=== PATIENT | female | born 1945 | race Caucasian/White ===

== ENCOUNTER 2020-08-14 15:24 | Inpatient (IN) ==
[2020-08-14] MEDS ORDERED: dilTIAZem HCl 5 MG/ML 5 ML VIAL IV STA (15:47)
[2020-08-14] MEDS ORDERED: STAT IV Infusion **Titration per Protocol STA (15:47)
--- NOTE | 2020-08-14 15:48 | XRay Report ---
XR chest 1V portable CLINICAL HISTORY: Atypical chest pain COMPARISON STUDY: 03/09/2019 FINDINGS: The heart is the upper limits of normal in size. There is aortic tortuosity/ectasia. There is a small right pleural effusion with associated right basilar atelectasis/consolidation. Underlying emphysema is suspected.[ IMPRESSION: Small right pleural effusion with associated right basilar atelectasis/consolidation ACT 112: Negative or not required by law. Electronically signed by: Jim Rich M.D. 08/14/2020 3:47 PM
--- NOTE | 2020-08-14 15:51 | Emergency Department Note ---
Impression & Plan Atrial fibrillation with RVR, Dizzy ED Provider Note NAME: MARIA LUISA YEPEZ AGE: 74 SEX: F : 1945 ARRIVES VIA: Walk-In INFORMANT: Patient ED PROVIDER(S): Christian Sousa DO CHIEF COMPLAINT: Shortness of breath and palpitations HPI: Patient is a 74-year-old female who presents the ER for palpitations. She notes this has been present for the past 9 days. She has been getting shortness of breath over the past 2 days. She denies any chest pain. No belly pain, nausea, vomiting or diarrhea with exception of some loose bowel movements today and yesterday. Denies any dysuria, urgency or frequency. No other exacerbating remitting factors. Patient was initially seen and evaluated by Dr. Little PCP and then referred to cardiology. She had an echo done as an outpatient at [facility] and then was transferred to the ER for admission. ROS: See above HPI for pertinent positives & negatives. A total of 10 systems reviewed and were otherwise negative. PAST MEDICAL HISTORY:See Below PAST SURGICAL HISTORY:See Below FAMILY HISTORY:See Below SOCIAL HISTORY:See Below HOME MEDICATIONS:See Below ALLERGIES:See Below VITALS:See Below PHYSICAL EXAMINATION: GENERAL: Sitting up in bed, alert, well appearing, well nourished, no distress, non-toxic EYE EXAM: normal conjunctiva. OROPHARYNX: Mask in place NECK: supple, no nuchal rigidity, no adenopathy, non-tender LUNGS: Clear to auscultation. Normal chest wall mechanics HEART: Tachycardic and irregular regular, S1 normal and S2 normal ABDOMEN: abdomen soft, non-tender, normo-active bowel sounds, no masses, no rebound or guarding. UPPER EXTREMITIES: upper extremities are grossly normal. LOWER EXTREMITIES: No pitting edema. Calves are equal bilateral NEURO EXAM: Normal sensorium, cranial nerves II-XII grossly intact, normal speech, no gross weakness of arms, no gross weakness of legs. MEDICAL DECISION MAKING: Patient is a 74-year-old female who presents the ER referred in by cardiology from [facility]. She is found to be in A. fib with RVR. Heart rate was in the 130s. IV was established blood work was obtained. Labs show no significant leukocytosis or anemia. INR unremarkable. BMP with a slightly elevated chloride. LFTs bilirubin and troponin was negative. TSH unremarkable. Covid negative. Patient notes that she believes she has been in this for about 9 days. She denies any chest pain. She does admit to some shortness of breath with up moving around. Chest x-ray shows some vascular congestion and a small effusion. Patient was updated bedside. She was placed on Cardizem drip and bolus. Heart rate trended down to the 70s. Discussed with the hospitalist for further evaluation. Triage Nursing notes reviewed. Prior medical records reviewed Vital Signs: reviewed and remarkable for hypertensive and tachycardic Differential diagnosis: Differential diagnoses includes but is not limited to acute coronary syndrome, myocardial infarction, pericarditis, pulmonary embolus, aortic dissection, pneumonia, pneumothorax, musculoskeletal, shingles, esophageal. ER treatment provided: See below Diagnostics interpreted by me: ECG: A. fib RVR rate 138 Normal axis No PVCs Nonspecific ST wave changes in the inferior and lateral leads Cardiac Monitoring: An order was placed for continuous cardiac monitoring. The monitor shows a rate of 140 with A. fib RVR rhythm. Laboratory studies: As stated above and show below. Imaging studies: Portable AP upright 1 view of the chest shows small effusion Consultation(s): Discussed with hospitalist for further evaluation ED COURSE: Procedures: none Critical Care: I have personally spent 40 minutes of critical care time in the direct management of this patient. This includes bedside care, interpretation of diagn ostic studies, and testing, discussion with consultants, patient, and family members, and other required patient management activities. This 40 minutes is in excess of all separately billable procedures. Past Med/Surg History Medical History (Updated 08/14/20 @ 17:59 by Christian Sousa DO) Dislocation, ulnar styloid Distal radius fracture, right GERD (gastroesophageal reflux disease) Hx of fracture of arm Family History Other Diabetes Myocardial infarction Social History Smoking Status: Former smoker Tobacco Type: Cigarettes Preferred Language: Sri Lankan Feels Safe at Home: Yes Allergies Allergies Allergy/AdvReac Type Severity Reaction Status Date / Time codeine AdvReac NAUSEA & Verified 08/14/20 16:37 VOMITING Home Meds Home Medications Medication Instructions Recorded Confirmed apixaban [Eliquis] 5 mg PO BID 08/14/20 08/14/20 metoprolol succinate 25 mg PO DAILY 08/14/20 08/14/20 Results & Data (ED) Vital Signs Vital Signs - 24 hr 08/14/20 15:27 08/14/20 15:33 08/14/20 15:50 Temperature 36.5 C Temperature Source Oral Pulse Rate 136 H 132 H Pulse Rate from SpO2 Sensor Respiratory Rate 20 Respiratory Effort / Characteristics Non-Labored Spontaneous Non-Labored Spontaneous Respiratory Depth Normal Normal Respiratory Pattern Regular Regular Blood Pressure 175/94 H Blood Pressure Mean 121 Blood Pressure Position Sitting Pulse Oximetry 96 97 Oxygen Delivery Method Room Air Room Air Room Air Sepsis Recent Fever Within 48 Hours No Sepsis New/Unexplained Change in Mental Status N/A Sepsis Action Taken by Nursing No Action Required 08/14/20 16:00 08/14/20 16:09 08/14/20 16:31 Temperature Temperature Source Pulse Rate 97 H 112 H Pulse Rate from SpO2 Sensor 103 H 105 H Respiratory Rate 17 22 Respiratory Effort / Characteristics Respiratory Depth Respiratory Pattern Blood Pressure 139/87 142/99 H Blood Pressure Mean 108 124 Blood Pressure Position Pulse Oximetry 96 93 95 Oxygen Delivery Method Room Air Sepsis Recent Fever Within 48 Hours Sepsis New/Unexplained Change in Mental Status Sepsis Action Taken by Nursing 08/14/20 17:01 Temperature Temperature Source Pulse Rate 94 H Pulse Rate from SpO2 Sensor 93 H Respiratory Rate 19 Respiratory Effort / Characteristics Respiratory Depth Respiratory Pattern Blood Pressure 149/103 H Blood Pressure Mean 119 Blood Pressure Position Pulse Oximetry 96 Oxygen Delivery Method Sepsis Recent Fever Within 48 Hours Sepsis New/Unexplained Change in Mental Status Sepsis Action Taken by Nursing Laboratory Data Result diagrams: 08/14/20 15:40 08/14/20 15:40 Lab Results 08/14/20 08/14/20 08/14/20 Range/Units 15:40 15:40 15:40 WBC 8.10 (4.8-10.8) K/uL RBC 4.16 L (4.2-5.4) M/uL Hgb 13.4 (12.0-16.0) g/dL Hct 41.0 (37-47) % MCV 98.6 (80-100) fL MCH 32.2 (25-34) pg MCHC 32.7 (32-36) g/dL RDW Std Deviation 48.4 H (36.4-46.3) fL RDW Coeff of Yolie 13.4 (11.5-14.5) % Plt Count 271 (130-400) K/uL MPV 12.1 H (7.4-10.4) fL Immature Gran % (Auto) 0.2 % Neut % (Auto) 53.4 % Lymph % (Auto) 35.9 % [place] % (Auto) 9.1 % Eos % (Auto) 1.2 % Baso % (Auto) 0.2 % Neut # (Auto) 4.31 (1.4-6.5) K/uL Lymph # (Auto) 2.91 (1.2-3.4) K/uL [place] # (Auto) 0.74 H (0.11-0.59) K/uL Eos # (Auto) 0.10 (0-0.5) K/uL Baso # (Auto) 0.02 (0-0.2) K/uL Immature Gran # (Auto) 0.02 (0.00-0.02) K/uL PT 10.3 (9.0-12.0) Seconds INR 1.0 (0.9-1.1) APTT 26.5 (21.0-31.0) Seconds PTT Ratio 0.9 Sodium 138 (136-145) mmol/L Potassium 4.1 (3.5-5.1) mmol/L Chloride 109 H (98-107) mmol/L Carbon Dioxide 25 (21-32) mmol/L Anion Gap 4.0 (3-11) BUN 15 (7-18) mg/dl Creatinine 0.96 (0.6-1.2) mg/dl Est Cr Clr Drug Dosing 66.6 ml/min Est GFR ( Amer) 67.5 Est GFR (Non-Af Amer) 58.3 BUN/Creatinine Ratio 15.7 (10-20) Glucose 114 H (70-99) mg/dl Calcium 9.0 (8.5-10.1) mg/dl Total Bilirubin 0.4 (0.2-1) mg/dl AST 25 (15-37) U/L ALT 47 (12-78) U/L Alkaline Phosphatase 110 (45-117) U/L Troponin I < 0.015 (0-0.045) ng/ml Total Protein 7.5 (6.4-8.2) gm/dl Albumin 3.6 (3.4-5.0) gm/dl Globulin 3.9 (2.5-4.0) gm/dl Albumin/Globulin Ratio 0.9 (0.9-2) Lipase 119 (73-393) U/L TSH (0.300-4.500) uIu/ml SARS-CoV-2 Ag (Rapid) (Negative) 08/14/20 08/14/20 Range/Units 15:40 Unknown WBC (4.8-10.8) K/uL RBC (4.2-5.4) M/uL Hgb (12.0-16.0) g/dL Hct (37-47) % MCV (80-100) fL MCH (25-34) pg MCHC (32-36) g/dL RDW Std Deviation (36.4-46.3) fL RDW Coeff of Yolie (11.5-14.5) % Plt Count (130-400) K/uL MPV (7.4-10.4) fL Immature Gran % (Auto) % Neut % (Auto) % Lymph % (Auto) % [place] % (Auto) % Eos % (Auto) % Baso % (Auto) % Neut # (Auto) (1.4-6.5) K/uL Lymph # (Auto) (1.2-3.4) K/uL [place] # (Auto) (0.11-0.59) K/uL Eos # (Auto) (0-0.5) K/uL Baso # (Auto) (0-0.2) K/uL Immature Gran # (Auto) (0.00-0.02) K/uL PT (9.0-12.0) Seconds INR (0.9-1.1) APTT (21.0-31.0) Seconds PTT Ratio Sodium (136-145) mmol/L Potassium (3.5-5.1) mmol/L Chloride (98-107) mmol/L Carbon Dioxide (21-32) mmol/L Anion Gap (3-11) BUN (7-18) mg/dl Creatinine (0.6-1.2) mg/dl Est Cr Clr Drug Dosing ml/min Est GFR ( Amer) Est GFR (Non-Af Amer) BUN/Creatinine Ratio (10-20) Glucose (70-99) mg/dl Calcium (8.5-10.1) mg/dl Total Bilirubin (0.2-1) mg/dl AST (15-37) U/L ALT (12-78) U/L Alkaline Phosphatase (45-117) U/L Troponin I (0-0.045) ng/ml Total Protein (6.4-8.2) gm/dl Albumin (3.4-5.0) gm/dl Globulin (2.5-4.0) gm/dl Albumin/Globulin Ratio (0.9-2) Lipase (73-393) U/L TSH 1.600 (0.300-4.500) uIu/ml SARS-CoV-2 Ag (Rapid) Negative (Negative) Administered Medications Diltiazem HCl 125 mg/ Dextrose 125 mls @ 5 mls/hr IV .Q24H [facility]; Protocol Stop: 09/13/20 15:59 Last Admin: 08/14/20 15:59 Dose: 5 mg/hr, 5 mls/hr Documented by: [id number] Cosigned by: [id number] Discontinued Medications Diltiazem HCl (Diltiazem Hcl 5 Mg/Ml 5 Ml Vial) 10 mg IV NOW STA Stop: 08/14/20 15:48 Last Admin: 08/14/20 15:55 Dose: 10 mg Documented by: [id number] Cosigned by: [id number] Miscellaneous (Stat Iv Infusion Titration Per Protocol) 1 ea N/A NOW STA Stop: 08/14/20 15:48 Last Admin: 08/14/20 15:59 Dose: Not Given Documented by: [id number] Discharge Plan Visit Data Chief Complaint: Arrhythmia/Palpitations Stated Complaint: SOB,PALPITATIONS, REFERRED BY [facility] ED Provider: Christian Sousa Discharge Problem: Atrial fibrillation with RVR, Dizzy Forms Stand Alone Forms: My [employer] Prescriptions Prescriptions: No Action metoprolol succinate 25 mg Tablet Extended Release 24 Hr 25 mg PO DAILY RF: 0 Eliquis 5 mg Tablet 5 mg PO BID RF: 0
[2020-08-14 15:52] LABS: Basophils # (auto) 0.02 K/uL (0-0.2); Basophils % (auto) 0.2 %; Eosinophils % (auto) 1.2 %; Hemoglobin 13.4 g/dL (12.0-16.0); Immature Granulocytes # (auto) 0.02 K/uL (0.00-0.02); Immature Granulocytes % (auto) 0.2 %; Lymphocytes # (auto) 2.91 K/uL (1.2-3.4); Lymphocytes % (auto) 35.9 %; Mean Corpuscular Hemoglobin 32.2 pg (25-34); Mean Corpuscular Hgb Conc 32.7 g/dL (32-36); Mean Corpuscular Volume 98.6 fL (80-100); Mean Platelet Volume 12.1 fL (7.4-10.4); Monocytes # (auto) 0.74 K/uL (0.11-0.59); Monocytes % (auto) 9.1 %; Neutrophils # (auto) 4.31 K/uL (1.4-6.5); Neutrophils % (auto) 53.4 %; Platelet Count 271 K/uL (130-400); RDW Coefficient of Variation 13.4 % (11.5-14.5); RDW Standard Deviation 48.4 fL (36.4-46.3); Red Blood Count 4.16 M/uL (4.2-5.4)
[2020-08-14] MEDS ORDERED: dilTIAZem HCL 125 MG in DEXTROSE 5% 100 ML IV SCH (16:00)
[2020-08-14 16:04] LABS: Partial Thromboplastin Ratio 0.9; Partial Thromboplastin Time 26.5 Seconds (21.0-31.0); Prothrombin Time 10.3 Seconds (9.0-12.0)
[2020-08-14 16:09] LABS: Albumin Level 3.6 gm/dl (3.4-5.0); BUN Creatinine Ratio 15.7 (10-20); Blood Urea Nitrogen 15 mg/dl (7-18); Carbon Dioxide 25 mmol/L (21-32); Chloride 109 mmol/L (98-107); Creatinine Clr Calc Pharmacy 66.6 ml/min; Est GFR (African American) 67.5; Est GFR (Non-African American) 58.3; Glucose 114 mg/dl (70-99); Lipase 119 U/L (73-393); Potassium 4.1 mmol/L (3.5-5.1); Sodium 138 mmol/L (136-145)
[2020-08-14 16:22] LABS: Alanine Aminotransferase 47 U/L (12-78); Albumin Globulin Ratio 0.9 (0.9-2); Alkaline Phosphatase 110 U/L (45-117); Aspartate Aminotransferase 25 U/L (15-37); Bilirubin,Total 0.4 mg/dl (0.2-1); Globulin 3.9 gm/dl (2.5-4.0); Total Protein 7.5 gm/dl (6.4-8.2); Troponin I < 0.015 ng/ml (0-0.045)
[2020-08-14] MEDS ORDERED: Heparin IV Adult Wt-Based Standard *NO* Bolus Protocol IV SCH (17:11)
--- NOTE | 2020-08-14 17:17 | History & Physical Report ---
Date of Service August 14, 2020 Assessment & Plan (1) Atrial fibrillation with RVR: Shortness of breath Pt is 74 y/o F with PMH basal cell skin carcinoma presented to ER with complaint of shortness of breath x10 days, intermittent "fluttering" of heart and fatigue x3 months. In ER patient afebrile, P: 136, RR: 20, BP 175/94, 96% on room air. No leukocytosis, H/H: 13/41, negative troponin, normal TSH, UA negative. CXR: Small right pleural effusion with associated right basilar atelect asis/consolidation D-dimer: 1070 New onset atrial fibrillation. SOB may be secondary to A. fib, RVR, will rule out PE CTA chest pending to rule out PE Pending urine tox Negative rapid Covid testing In ER diltiazem drip started with heart rate low 100s, BP 139/87. Patient reports reduced shortness of breath since improved heart rate control Continue diltiazem drip Start heparin IV Cardiology consult A.m. labs DVT Prophylaxis -On IV heparin for A. fib DNR/DNI as per discussion with pt Follows with Dr Cervantes for routine care Pt was seen and care coordinated with Dr Whyte. See addendum History of Present Illness Chief Complaint: SOB Primary Care Provider: Rayshawn Cervantes DO Pt is 74 y/o F with PMH basal cell skin carcinoma presented to ER with complaint of shortness of breath x10 days. Shortness of breath worse with exertion. Also noticed intermittent "fluttering" of heart the past week. Patient reports chills for the past week without any fever. Reports fatigue x3 months. She reports negative outpatient rapid Covid testing 2 days ago. Has chronic nasal congestion. Reports 2-3 soft stools a day for the past week. Denies any loss of taste or smell. Denies cough. Denies chest pain. Admits to increased caffeine intake over the past several weeks, consuming 2 to 3 cups of coffee and 20 ounce bottle of Mountain Dew daily. Drinks 2 glasses of wine a day. Denies OTC or prescription medications. Saw PCP today and was referred to cardiology and referred to ER for further evaluation and treatment. PCP prescribed Eliquis and metoprolol succinate today however pt did not start taking yet. Outpatient echo report unavailable however echo report per cardiology note "preserved left and right ventricular systolic function, dilation of left atrium". Denies diaphoresis, N/V, MIGUEL, dizziness, syncope, vision changes, neck pain, sore throat, choking, otalgia, abdominal pain, extremity weakness, extremity edema, rashes, urinary symptoms. Allergies Allergy/AdvReac Type Severity Reaction Status Date / Time codeine AdvReac NAUSEA & Verified 08/14/20 16:37 VOMITING Home Medications Medication Instructions Recorded Confirmed Type apixaban [Eliquis] 5 mg PO BID 08/14/20 08/14/20 History metoprolol succinate 25 mg PO DAILY 08/14/20 08/14/20 History Past Med/Surg History Medical History (Updated 08/14/20 @ 20:08 by Jennifer Peterson PA-C) Basal cell carcinoma Dislocation, ulnar styloid Distal radius fracture, right GERD (gastroesophageal reflux disease) Hx of fracture of arm Surgical History (Updated 08/14/20 @ 20:09 by Jennifer Peterson PA-C) History of colonoscopy Family History Other Diabetes Myocardial infarction Social History (Updated 08/14/20 @ 20:09 by Jennifer Peterson PA-C) Smoking Status: Former smoker Tobacco Type: Cigarettes Smoking End Date: 35 years ago; Hx Alcohol Use: Yes (2 glasses of wine daily) Alcohol type: wine Hx Substance Use: No Preferred Language: Korean Communication Ability: Effective Beliefs That Will Affect Care: None Current Living Situation: Spouse Other Information That Helps Us Care for You: No Feels Safe at Home: Yes Safety Concerns: Feels Safe At This Time Assistive Devices: Glasses Review of Systems Review of Systems: All systems reviewed & are unremarkable except as noted in HPI & below Physical Exam Physical Exam: General: no distress, WDWN Head: normocephalic, atraumatic Eyes: PERRL, EOM's intact, conjunctiva non-injected, anicteric ENT: normal inspection external ears, nose, mucous membranes moist Neck: supple, trachea midlin Lungs: clear, no respiratory distress, no wheezing/rhonchi/rales CV: irregularly irregular, no murmur, no pretibial edema Abd: normal BS, soft, non-tender Ext: no cyanosis, no erythema, no calf tenderness Neuro: A&O x 3, no focal deficits noted, normal affect Skin: warm, dry Results & Data Results & Data ([facility]) Vital Signs (Past 12 Hours) Vital Signs Temp Pulse Resp BP Pulse Ox 08/14/20 16:09 93 08/14/20 15:50 132 H 97 08/14/20 15:27 36.5 C 136 H 20 175/94 H 96 Laboratory Results Short CBC 08/14/20 Range/Units 15:40 WBC 8.10 (4.8-10.8) K/uL Hgb 13.4 (12.0-16.0) g/dL Hct 41.0 (37-47) % Plt Count 271 (130-400) K/uL BMP 08/14/20 15:40 Sodium 138 Potassium 4.1 Chloride 109 H Carbon Dioxide 25 BUN 15 Creatinine 0.96 Glucose 114 H Calcium 9.0 Cardiac Enzymes 08/14/20 Range/Units 15:40 Troponin I < 0.015 (0-0.045) ng/ml Liver Function 08/14/20 Range/Units 15:40 Total Bilirubin 0.4 (0.2-1) mg/dl AST 25 (15-37) U/L ALT 47 (12-78) U/L Alkaline Phosphatase 110 (45-117) U/L Albumin 3.6 (3.4-5.0) gm/dl Urine 08/14/20 Range/Units 18:14 Urine Color Yellow Urine Appearance Clear (Clear) Urine pH 6.5 (4.5-7.5) Ur Specific [place] 1.011 (1.000-1.030) Urine Protein Negative (Negative) Urine Glucose (UA) Negative (Negative) Diagnostic Findings CXR: IMPRESSION: Small right pleural effusion with associated right basilar atelectasis/consolidation ECG Rate (beats per minute): 138 Rhythm: atrial fibrillation Supervising Physician Co-Signing Physician Notes I have seen and examined the patient and have discussed the case with the provider above. I agree with the assessment and plan as stated. 74 yo F with new onset atrial fibrillation. Rate is more controlled on diltiazem drip and on my exam she was 85bpm on average. She reports SOB and fatigue x 3 days. She illustrates how she can typically run up and down stairs at work without issue and recently she could only go up half way and then had to stop 2/2 SOB. She reports chills and abnormal BMs that are "sticky" 3 times daily for one week. She denies chest pain. Exam reveals that listed above and is mostly unremarkable. Agree with current plan of dilt and heparin drips with consultation to cardiology in am. Pato, DO
[2020-08-14 18:00] LABS: D Dimer 1070 ug/L FEU (0-500)
[2020-08-14 18:23] LABS: Appearance Urine Clear (Clear); Bilirubin Urine Negative (Negative); Blood Urine Negative (Negative); Color Urine Yellow; Glucose Urine UA Negative (Negative); Ketones Urine Negative (Negative); Leukocyte Esterase Urine Negative (Negative); Nitrite Urine Negative (Negative); Protein Urine Negative (Negative); Specific Gravity Urine 1.011 (1.000-1.030); Urobilinogen Urine Negative (Negative); pH Urine 6.5 (4.5-7.5)
[2020-08-14] MEDS ORDERED: ACETAMINOPHEN 325 MG TAB PO PRN (19:34)
[2020-08-14] MEDS: HEPARIN SODIUM/DEXTROSE 25,000 UNITS/500 ML BAG IV SCH (20:31)
[2020-08-14] MEDS ORDERED: OPTIRAY 320 125ml IV ONE (20:50)
[2020-08-14 21:55] LABS: Amphetamines+Metham, Urine Neg (Neg); Barbiturates, Urine Neg (Neg); Benzodiazepine, Urine Neg (Neg); Cocaine, Urine Neg (Neg); MDMA (Ecstacy), Urine Neg (Neg); Methadone, Urine Neg (Neg); Opiate, Urine Neg (Neg); Phencyclidine, Urine Neg (Neg)
[2020-08-15 02:16] LABS: Hematocrit (blood only) 36.4 % (37-47); Hemoglobin 11.8 g/dL (12.0-16.0); Mean Corpuscular Hemoglobin 31.9 pg (25-34); Mean Corpuscular Hgb Conc 32.4 g/dL (32-36); Mean Corpuscular Volume 98.4 fL (80-100); Mean Platelet Volume 11.6 fL (7.4-10.4); Platelet Count 219 K/uL (130-400); RDW Coefficient of Variation 13.5 % (11.5-14.5); RDW Standard Deviation 48.6 fL (36.4-46.3); White Blood Count 6.53 K/uL (4.8-10.8)
[2020-08-15 02:33] LABS: BUN Creatinine Ratio 14.7 (10-20); Calcium 8.1 mg/dl (8.5-10.1); Creatinine Clr Calc Pharmacy 83.1 ml/min; Est GFR (African American) 89.6; Est GFR (Non-African American) 77.3; Potassium 3.8 mmol/L (3.5-5.1)
[2020-08-15 02:36] LABS: Partial Thromboplastin Ratio 2.4
[2020-08-15 02:39] LABS: Partial Thromboplastin Time 66.3 Seconds (21.0-31.0)
--- NOTE | 2020-08-15 08:08 | CT Scan Report ---
CT ANGIOGRAPHY OF THE CHEST, PULMONARY EMBOLUS PROTOCOL CLINICAL HISTORY: Shortness of breath. Evaluate for pulmonary embolus. COMPARISON STUDY: Chest radiograph March 09, 2019 and August 14, 2020. TECHNIQUE: Following IV administration of 116 mL of Optiray-320, helical axial images of the chest we re obtained utilizing the pulmonary embolus protocol. Maximal intensity projections and sagittal and coronal reformats were viewed on an independent 3D workstation. IV contrast was administered withou t complication. Automated exposure control was utilized for the study. A dose lowering technique wa s utilized adhering to the principles of ALARA. CT DOSE: 374.23 mGy.cm FINDINGS: No pulmonary emboli are identified although the segmental and subsegmental pulmonary arter ies within the bilateral lower lobes are suboptimally assessed on this examination. Note is made of m oderate cardiomegaly. Ascending aorta is ectatic, measuring 3.9 cm in caliber. There is no pneumothor ax. Small to moderate right pleural effusion is noted. Interlobular septal thickening is noted. There are mild groundglass opacities. Subpleural right lower lobe opacity favors atelectasis. No thoracic lymphadenopathy is present. No suspicious lesions within the bony thorax are noted. Visual portions o f the upper abdomen are unremarkable. IMPRESSION: 1. No pulmonary emboli identified although segmental and subsegmental pulmonary arteries within the l ower lobes suboptimally assessed on this exam. 2. Small to moderate right pleural effusion with associated right lower lobe airspace opacity which f avors atelectasis. 3. Mild pulmonary edema. 4. Moderate cardiomegaly. ACT 112: Negative or not required by law. Electronically signed by: Román Newsome M.D. 08/15/2020 8:07 AM
--- NOTE | 2020-08-15 10:49 | Cardiology Consultation ---
Date of Consultation August 15, 2020 Assessment & Plan (1) Atrial fibrillation with RVR: Patient is a 74-year-old female presented with subacute onset symptoms of dyspnea and fatigue of several weeks in duration and was found to have newly observed atrial fibrillation with elevated ventricular response rate. Evaluation has demonstrated preserved LV systolic function and no significant valvular disease. Pulmonary pressures mildly elevated but CTA of the chest without evidence of pulmonary emboli. Patient rate controlled now with IV diltiazem and anticoagulated with IV heparin. History is notable for mild edema and fluid retention over the past several week Recommendations: Initiate oral anticoagulation with apixaban 5 mg twice per day while discontinuing heparin Initiate rate control with oral beta-yvette, begin metoprolol succinate 25 mg twice per day first dose now discontinuing IV diltiazem Single dose p.o. furosemide 20 mg with potassium supplement Depending on rate response to above changes may be discharged for outpatient management History of Present Illness Reason for Consultation: Newly observed atrial fibrillation with elevated ventricular response rate Requesting Physician: Dr. Casarez, Dr. Whyte Attending Physician: Hannah Casarez MD History of Present Illness Patient is a 74-year-old female without prior history of cardiac disease who presented with symptoms of fatigue and shortness of breath of several weeks or greater in duration. She had been experiencing symptoms of increasing lower extremity edema as well and result was tested for Covid which returned negative. Due to persistent symptoms patient was seen by primary care physician where she was observed to be in atrial fibrillation with poorly controlled ventricular response rate. Patient unaware of prior atrial arrhythmias. Notes no history of angina or congestive heart failure. Notes no history of valvular heart disease rheumatic fever scarlet fever. Denies syncope or near syncope. Notes no fevers chills unexplained infections. Appetite and weight have been generally stable but weight gradually trending upward recently. Patient was referred for inpatient management due to elevated heart rates and dyspnea. Pulmonary embolus is since been excluded Echocardiogram demonstrates preserved LV systolic function with mild elevation right heart pressures no significant valvular disease Heart rates have come under control with IV diltiazem. Patient anticoagulated with IV heparin Allergies Allergy/AdvReac Type Severity Reaction Status Date / Time codeine AdvReac NAUSEA & Verified 08/14/20 16:37 VOMITING Home Medications Medication Instructions Recorded Confirmed Type apixaban [Eliquis] 5 mg PO BID 08/14/20 08/14/20 History metoprolol succinate 25 mg PO DAILY 08/14/20 08/14/20 History Patient History Medical History Basal cell carcinoma Dislocation, ulnar styloid Distal radius fracture, right GERD (gastroesophageal reflux disease) Hx of fracture of arm Surgical History History of colonoscopy Family History Other Diabetes Myocardial infarction Social History Smoking Status: Former smoker Tobacco Type: Cigarettes Smoking End Date: 35 years ago; Hx Alcohol Use: Yes (2 glasses of wine daily) Alcohol type: wine Hx Substance Use: No Preferred Language: Cymro Communication Ability: Effective Beliefs That Will Affect Care: None Current Living Situation: Spouse Other Information That Helps Us Care for You: No Feels Safe at Home: Yes Safety Concerns: Feels Safe At This Time Assistive Devices: None Review of Systems Review of Systems: All systems reviewed & are unremarkable except as noted in HPI & below Physical Exam Constitutional: WD/WN, vitals as above Eyes: PERRL, conjunctivae normal, anicteric sclerae ENMT: external ear and nose normal, oropharynx normal Neck: trachea midline, no thyromegaly Respiratory: normal respiratory effort, lungs clear to auscultation Cardiovascular: Rate/Rhythm: + irregularly irregular Heart Sounds: normal S1 and normal S2; no gallop and no murmur Palpation: normal PMI Vessels: normal carotid upstroke and radial pulses present; no JVD and no carotid bruit Extremities: + edema (1-2 +) Gastrointestinal (Abdomen): normal bowel sounds, soft, nontender, no hepatosplenomegaly Musculoskeletal: no cyanosis or clubbing, extremities motor strength 5/5 Skin: no rashes, warm and dry Neurologic: PERRL, EOMI, accommodation nl, no face palsy, no dysarthria Psychiatric: A+Ox3, euthymic affect Results & Data ([facility]) Vital Signs (Past 12 Hours) Vital Signs Temp Pulse Pulse Resp BP Pulse Ox 08/15/20 08:01 36.9 C 75 18 115/56 L 98 08/15/20 03:58 36.5 C 83 18 124/87 92 08/15/20 00:08 36.7 C 85 18 119/78 91 08/15/20 00:00 90 Laboratory Results Laboratory Results - last 24 hr 08/14/20 08/14/20 08/14/20 15:40 15:40 15:40 WBC 8.10 RBC 4.16 L Hgb 13.4 Hct 41.0 MCV 98.6 MCH 32.2 MCHC 32.7 RDW Std Deviation 48.4 H RDW Coeff of Yolie 13.4 Plt Count 271 MPV 12.1 H Immature Gran % (Auto) 0.2 Neut % (Auto) 53.4 Lymph % (Auto) 35.9 [place] % (Auto) 9.1 Eos % (Auto) 1.2 Baso % (Auto) 0.2 Neut # (Auto) 4.31 Lymph # (Auto) 2.91 [place] # (Auto) 0.74 H Eos # (Auto) 0.10 Baso # (Auto) 0.02 Immature Gran # (Auto) 0.02 PT 10.3 INR 1.0 APTT 26.5 PTT Ratio 0.9 D-Dimer Sodium 138 Potassium 4.1 Chloride 109 H Carbon Dioxide 25 Anion Gap 4.0 BUN 15 Creatinine 0.96 Est Cr Clr Drug Dosing 66.6 Est GFR ( Amer) 67.5 Est GFR (Non-Af Amer) 58.3 BUN/Creatinine Ratio 15.7 Glucose 114 H Calcium 9.0 Total Bilirubin 0.4 AST 25 ALT 47 Alkaline Phosphatase 110 Troponin I < 0.015 Total Protein 7.5 Albumin 3.6 Globulin 3.9 Albumin/Globulin Ratio 0.9 Lipase 119 TSH Urine Color Urine Appearance Urine pH Ur Specific [place] Urine Protein Urine Glucose (UA) Urine Ketones Urine Blood Urine Nitrite Urine Bilirubin Urine Urobilinogen Ur Leukocyte Esterase Urine Opiates Screen Ur Methadone, Qual Urine Barbiturates Ur Phencyclidine (PCP) U Amphetamin/Meth Scrn MDMA (Ecstasy) Screen U Benzodiazepines Scrn Ur Cocaine Metabolite U Marijuana (THC) Screen SARS-CoV-2 Ag (Rapid) 08/14/20 08/14/20 08/14/20 15:40 15:40 18:14 WBC RBC Hgb Hct MCV MCH MCHC RDW Std Deviation RDW Coeff of Yolie Plt Count MPV Immature Gran % (Auto) Neut % (Auto) Lymph % (Auto) [place] % (Auto) Eos % (Auto) Baso % (Auto) Neut # (Auto) Lymph # (Auto) [place] # (Auto) Eos # (Auto) Baso # (Auto) Immature Gran # (Auto) PT INR APTT PTT Ratio D-Dimer 1070 H* Sodium Potassium Chloride Carbon Dioxide Anion Gap BUN Creatinine Est Cr Clr Drug Dosing Est GFR ( Amer) Est GFR (Non-Af Amer) BUN/Creatinine Ratio Glucose Calcium Total Bilirubin AST ALT Alkaline Phosphatase Troponin I Total Protein Albumin Globulin Albumin/Globulin Ratio Lipase TSH 1.600 Urine Color Yellow Urine Appearance Clear Urine pH 6.5 Ur Specific [place] 1.011 Urine Protein Negative Urine Glucose (UA) Negative Urine Ketones Negative Urine Blood Negative Urine Nitrite Negative Urine Bilirubin Negative Urine Urobilinogen Negative Ur Leukocyte Esterase Negative Urine Opiates Screen Ur Methadone, Qual Urine Barbiturates Ur Phencyclidine (PCP) U Amphetamin/Meth Scrn MDMA (Ecstasy) Screen U Benzodiazepines Scrn Ur Cocaine Metabolite U Marijuana (THC) Screen SARS-CoV-2 Ag (Rapid) 08/14/20 08/14/20 08/14/20 21:00 21:19 Unknown WBC RBC Hgb Hct MCV MCH MCHC RDW Std Deviation RDW Coeff of Yolie Plt Count MPV Immature Gran % (Auto) Neut % (Auto) Lymph % (Auto) [place] % (Auto) Eos % (Auto) Baso % (Auto) Neut # (Auto) Lymph # (Auto) [place] # (Auto) Eos # (Auto) Baso # (Auto) Immature Gran # (Auto) PT INR APTT PTT Ratio D-Dimer Sodium Potassium Chloride Carbon Dioxide Anion Gap BUN Creatinine Est Cr Clr Drug Dosing Est GFR ( Amer) Est GFR (Non-Af Amer) BUN/Creatinine Ratio Glucose Calcium Total Bilirubin AST ALT Alkaline Phosphatase Troponin I < 0.015 Total Protein Albumin Globulin Albumin/Globulin Ratio Lipase TSH Urine Color Urine Appearance Urine pH Ur Specific [place] Urine Protein Urine Glucose (UA) Urine Ketones Urine Blood Urine Nitrite Urine Bilirubin Urine Urobilinogen Ur Leukocyte Esterase Urine Opiates Screen Neg Ur Methadone, Qual Neg Urine Barbiturates Neg Ur Phencyclidine (PCP) Neg U Amphetamin/Meth Scrn Neg MDMA (Ecstasy) Screen Neg U Benzodiazepines Scrn Neg Ur Cocaine Metabolite Neg U Marijuana (THC) Screen Neg SARS-CoV-2 Ag (Rapid) Negative 08/15/20 08/15/20 08/15/20 02:06 02:06 02:06 WBC 6.53 RBC 3.70 L Hgb 11.8 L Hct 36.4 L MCV 98.4 MCH 31.9 MCHC 32.4 RDW Std Deviation 48.6 H RDW Coeff of Yolie 13.5 Plt Count 219 MPV 11.6 H Immature Gran % (Auto) Neut % (Auto) Lymph % (Auto) [place] % (Auto) Eos % (Auto) Baso % (Auto) Neut # (Auto) Lymph # (Auto) [place] # (Auto) Eos # (Auto) Baso # (Auto) Immature Gran # (Auto) PT INR APTT 66.3 H* PTT Ratio 2.4 D-Dimer Sodium Potassium Chloride Carbon Dioxide Anion Gap BUN Creatinine Est Cr Clr Drug Dosing Est GFR ( Amer) Est GFR (Non-Af Amer) BUN/Creatinine Ratio Glucose Calcium Total Bilirubin AST ALT Alkaline Phosphatase Troponin I < 0.015 Total Protein Albumin Globulin Albumin/Globulin Ratio Lipase TSH Urine Color Urine Appearance Urine pH Ur Specific [place] Urine Protein Urine Glucose (UA) Urine Ketones Urine Blood Urine Nitrite Urine Bilirubin Urine Urobilinogen Ur Leukocyte Esterase Urine Opiates Screen Ur Methadone, Qual Urine Barbiturates Ur Phencyclidine (PCP) U Amphetamin/Meth Scrn MDMA (Ecstasy) Screen U Benzodiazepines Scrn Ur Cocaine Metabolite U Marijuana (THC) Screen SARS-CoV-2 Ag (Rapid) 08/15/20 02:06 WBC RBC Hgb Hct MCV MCH MCHC RDW Std Deviation RDW Coeff of Yolie Plt Count MPV Immature Gran % (Auto) Neut % (Auto) Lymph % (Auto) [place] % (Auto) Eos % (Auto) Baso % (Auto) Neut # (Auto) Lymph # (Auto) [place] # (Auto) Eos # (Auto) Baso # (Auto) Immature Gran # (Auto) PT INR APTT PTT Ratio D-Dimer Sodium 141 Potassium 3.8 Chloride 112 H Carbon Dioxide 28 Anion Gap 1.0 L BUN 11 Creatinine 0.76 Est Cr Clr Drug Dosing 83.1 Est GFR ( Amer) 89.6 Est GFR (Non-Af Amer) 77.3 BUN/Creatinine Ratio 14.7 Glucose 100 H Calcium 8.1 L Total Bilirubin AST ALT Alkaline Phosphatase Troponin I Total Protein Albumin Globulin Albumin/Globulin Ratio Lipase TSH Urine Color Urine Appearance Urine pH Ur Specific [place] Urine Protein Urine Glucose (UA) Urine Ketones Urine Blood Urine Nitrite Urine Bilirubin Urine Urobilinogen Ur Leukocyte Esterase Urine Opiates Screen Ur Methadone, Qual Urine Barbiturates Ur Phencyclidine (PCP) U Amphetamin/Meth Scrn MDMA (Ecstasy) Screen U Benzodiazepines Scrn Ur Cocaine Metabolite U Marijuana (THC) Screen SARS-CoV-2 Ag (Rapid)
[2020-08-15] MEDS ORDERED: METOPROLOL SUCC 25MG EXT REL TAB PO SCH (11:00)
[2020-08-15] MEDS ORDERED: FUROSEMIDE 20 MG TAB PO ONE (11:01)
[2020-08-15] MEDS ORDERED: POTASSIUM CHLORIDE CRTAB 20 MEQ TABCR PO ONE (11:01)
[2020-08-15] MEDS ORDERED: APIXABAN 2.5 MG TAB PO SCH (11:02)
[2020-08-15] MEDS: HEPARIN SODIUM/DEXTROSE 25,000 UNITS/500 ML BAG IV SCH (11:46)
[2020-08-15] MEDS: APIXABAN 5 MG TABLET PO SCH ×2 (12:56→20:38)
[2020-08-15] MEDS ORDERED: METOPROLOL TARTRATE 1 MG/ML VIAL IV PRN (16:14)
--- NOTE | 2020-08-15 16:17 | Hospitalist Progress Note ---
Date of Service August 15, 2020 Assessment & Plan (1) Atrial fibrillation with RVR: presented with Afib RVR ( new diagnosis ) was on IV Cardizem gtt and IV heparin in ER appreciate cardiology eval changed antiarrhythmic to beta yvette : Toprol XL 25 mg BID anticoagulation changed to PO Eliquis 5 mg BID observe in tele pt does not have any personal hx of cardiac disease Father and Grandfather had CAD , father [place] at age 70's Son had Afib required ablation . Pulmonary congestion : CT chest : no PE , mild pleural effusion ECHO : normal EF with no wall motion abnormality given one dose of IV Lasix and PO K supplement by cardiology possible decompensated CHF diastolic dysfunction ( HFpEF ) due to rapid afib cont to monitor Full code DVT prophylaxis : on Eliquis Disposition : will be discharged to home when medically stable plan of care d/w pt ,all questions answered Admission and Anticipated Discharge Date Admission Date: August 14, 2020 Subjective FOLLOW UP VISIT FOR RAPID AFIB RVR : pt reports of no symptoms of SOB , no WILLIS , no dizzy spell or palpitation off Cardizem gtt started on PO Toprol XL no fever or chills , no cough Review of Systems Review of Systems: All systems reviewed & are unremarkable except as noted in HPI & below Respiratory: no cough, no dyspnea and no dyspnea on exertion Cardiovascular: no chest pain, no dyspnea at rest, no palpitations, no lightheadedness and no edema Physical Exam Constitutional: WD/WN, vitals as above Eyes: PERRL, conjunctivae normal, anicteric sclerae ENMT: external ear and nose normal, oropharynx normal Neck: trachea midline, no thyromegaly Respiratory: normal respiratory effort, lungs clear to auscultation Cardiovascular: Rate/Rhythm: + tachycardic and + irregularly irregular Gastrointestinal (Abdomen): Percussion/Palpation: abdomen soft; abdomen nontender Musculoskeletal: no cyanosis or clubbing, extremities motor strength 5/5 Skin: no rashes, warm and dry Neurologic: PERRL, EOMI, accommodation nl, no face palsy, no dysarthria Psychiatric: A+Ox3, euthymic affect Results & Data Results & Data ([facility]) Vital Signs (Past 12 Hours) Vital Signs Temp Pulse Resp BP Pulse Ox 08/15/20 15:11 36.7 C 120 H 19 116/81 93 08/15/20 11:50 37 C 85 18 146/89 H 97 08/15/20 08:01 36.9 C 75 18 115/56 L 98
[2020-08-15] MEDS ORDERED: METOPROLOL SUCC 25MG EXT REL TAB PO ONE (16:18)
[2020-08-15] MEDS: METOPROLOL TARTRATE 1 MG/ML VIAL IV STA ×2 (16:19→16:53)
--- NOTE | 2020-08-15 16:22 | Communication Note ---
Date of Service: August 15, 2020 Attending note: started on Toprol XL 25 mg BID Pt remains in Afib with minimum activity Afib RVR with HR noted to go up to 160 ' pt does not experience any symptoms of palpitation , SOB . Dizzy spell . D/w with pediatric nurse practitioner Booking Officer Dr Borjas -increase the Toprol XL dose to 50 mg BID give 25 mg PO extra dose now . beta yvette dose adjusted as above continue to monitor in tele Hannah Casarez MD
[2020-08-15] MEDS ORDERED: METOPROLOL TARTRATE 1 MG/ML VIAL IV STA (17:29)
[2020-08-15] MEDS: METOPROLOL SUCC 50MG EXT REL TAB PO SCH (20:38)
--- NOTE | 2020-08-16 05:55 | Electrocardiogram Report ---
Test Reason : Blood Pressure : / mmHG Vent. Rate : 138 BPM Atrial Rate : 133 BPM P-R Int : 000 ms QRS Dur : 082 ms QT Int : 304 ms P-R-T Axes : 000 044 049 degrees QTc Int : 460 ms Atrial fibrillation with rapid ventricular response Abnormal ECG When compared with ECG of 09-MAR-2019 13:23, Atrial fibrillation has replaced Sinus rhythm Vent. rate has increased BY 69 BPM Confirmed by Jerod Cruz ([id number]) on 08/16/2020 5:54:55 AM Referred By: Confirmed By:Jerod Cruz
--- NOTE | 2020-08-16 06:29 | Electrocardiogram Report ---
Test Reason : Blood Pressure : / mmHG Vent. Rate : 086 BPM Atrial Rate : 136 BPM P-R Int : 000 ms QRS Dur : 078 ms QT Int : 394 ms P-R-T Axes : 000 077 075 degrees QTc Int : 471 ms Atrial fibrillation Abnormal ECG When compared with ECG of 14-AUG-2020 15:35, Vent. rate has decreased BY 52 BPM Confirmed by Jerod Cruz ([id number]) on 08/16/2020 6:28:58 AM Referred By: REFERRED SELF Confirmed By:Jerod Cruz
[2020-08-16] MEDS: APIXABAN 5 MG TABLET PO SCH (08:06)
[2020-08-16] MEDS: METOPROLOL SUCC 50MG EXT REL TAB PO SCH (08:06)
--- NOTE | 2020-08-16 10:01 | Cardiology Progress Note ---
Date of Service August 16, 2020 Assessment & Plan (1) Atrial fibrillation with RVR: (2) Heart failure, diastolic, with acute decompensation: Atrial fibrillation with a rapid ventricular response, of unknown duration, possibly several weeks duration Minimally symptomatic, with signs and symptoms of resultant acute decompensated diastolic congestive heart failure. Metoprolol succinate at 50 mg twice a day. This may need to be increased shortly down the road. Oral anticoagulation, apixaban (Eliquis), 5 mg twice per day Initiate diuretic therapy starting with 20 mg IV furosemide now then oral furosemide starting tomorrow Supplement potassium chloride orally ? Future outpatient direct current cardioversion, after proper anticoagulation Consider outpatient Sleep Medicine evaluation Cardiology follow-up at [facility] on Thursday, August 27, 2020 at 10:45 AM Admission and Anticipated Discharge Date Admission Date: August 14, 2020 Supervising Physician Co-Signing Physician Notes Assessment and plan reviewed in detail. Agree with as outlined. Outpatient appointment scheduled Fabian Quinn MD Subjective Patient seen and examined. Chart, medications, and telemetry reviewed. Patient notes feeling breathless this morning, without cough, chest congestion, orthopnea, PND, or increased edema. Stable fatigue of several weeks duration. No chest pain. No overt palpitations. No dizziness or syncope. No fevers or chills. No bleeding issues. Telemetry: Atrial fibrillation ranging from 75 bpm during the night to 140 bpm with minimal activity. Resting heart rates are currently in the mid 80's to 100 bpm. Outpatient resting echocardiography revealed preserved LV systolic function and no significant valvular disease. Pulmonary pressures were notably mildly elevated. CTA of the chest was negative for pulmonary emboli. Review of Systems Review of Systems: All systems reviewed & are unremarkable except as noted in HPI & below Physical Exam Physical Exam: General: A&Ox3. NAD. HEENT: Normocephalic. Atraumatic. PER. Conjunctiva pink, sclera clear. Neck: + JVD. No carotid bruits. Heart: Irregularly irregular in the 90's. Somewhat distant heart sounds. No murmur. No rub. No gallop. PMI is nondisplaced. Lungs: Absent breath sounds at the right base. Faint right greater than left basilar rales. Abdomen: +BS. Soft. Nontender. No masses or organomegaly. Extremities: Thick. Minimal edema. No clubbing. No cyanosis. Limited neurological examination is without focal deficits. Results & Data ([facility]) Vital Signs (Past 12 Hours) Vital Signs Temp Pulse Pulse Resp BP Pulse Ox 08/16/20 08:05 36.6 C 16 129/90 93 08/16/20 04:14 36.4 C L 89 16 129/91 91 08/16/20 00:00 92 H 08/15/20 23:20 36.6 C 89 19 114/73 94 Laboratory Results Laboratory Results - last 48 hr 08/14/20 08/14/20 08/14/20 15:40 15:40 15:40 WBC 8.10 RBC 4.16 L Hgb 13.4 Hct 41.0 MCV 98.6 MCH 32.2 MCHC 32.7 RDW Std Deviation 48.4 H RDW Coeff of Yolie 13.4 Plt Count 271 MPV 12.1 H Immature Gran % (Auto) 0.2 Neut % (Auto) 53.4 Lymph % (Auto) 35.9 [place] % (Auto) 9.1 Eos % (Auto) 1.2 Baso % (Auto) 0.2 Neut # (Auto) 4.31 Lymph # (Auto) 2.91 [place] # (Auto) 0.74 H Eos # (Auto) 0.10 Baso # (Auto) 0.02 Immature Gran # (Auto) 0.02 PT 10.3 INR 1.0 APTT 26.5 PTT Ratio 0.9 D-Dimer Sodium 138 Potassium 4.1 Chloride 109 H Carbon Dioxide 25 Anion Gap 4.0 BUN 15 Creatinine 0.96 Est Cr Clr Drug Dosing 66.6 Est GFR ( Amer) 67.5 Est GFR (Non-Af Amer) 58.3 BUN/Creatinine Ratio 15.7 Glucose 114 H Calcium 9.0 Total Bilirubin 0.4 AST 25 ALT 47 Alkaline Phosphatase 110 Troponin I < 0.015 Total Protein 7.5 Albumin 3.6 Globulin 3.9 Albumin/Globulin Ratio 0.9 Lipase 119 TSH Urine Color Urine Appearance Urine pH Ur Specific [place] Urine Protein Urine Glucose (UA) Urine Ketones Urine Blood Urine Nitrite Urine Bilirubin Urine Urobilinogen Ur Leukocyte Esterase Urine Opiates Screen Ur Methadone, Qual Urine Barbiturates Ur Phencyclidine (PCP) U Amphetamin/Meth Scrn MDMA (Ecstasy) Screen U Benzodiazepines Scrn Ur Cocaine Metabolite U Marijuana (THC) Screen SARS-CoV-2 Ag (Rapid) 08/14/20 08/14/20 08/14/20 15:40 15:40 18:14 WBC RBC Hgb Hct MCV MCH MCHC RDW Std Deviation RDW Coeff of Yolie Plt Count MPV Immature Gran % (Auto) Neut % (Auto) Lymph % (Auto) [place] % (Auto) Eos % (Auto) Baso % (Auto) Neut # (Auto) Lymph # (Auto) [place] # (Auto) Eos # (Auto) Baso # (Auto) Immature Gran # (Auto) PT INR APTT PTT Ratio D-Dimer 1070 H* Sodium Potassium Chloride Carbon Dioxide Anion Gap BUN Creatinine Est Cr Clr Drug Dosing Est GFR ( Amer) Est GFR (Non-Af Amer) BUN/Creatinine Ratio Glucose Calcium Total Bilirubin AST ALT Alkaline Phosphatase Troponin I Total Protein Albumin Globulin Albumin/Globulin Ratio Lipase TSH 1.600 Urine Color Yellow Urine Appearance Clear Urine pH 6.5 Ur Specific [place] 1.011 Urine Protein Negative Urine Glucose (UA) Negative Urine Ketones Negative Urine Blood Negative Urine Nitrite Negative Urine Bilirubin Negative Urine Urobilinogen Negative Ur Leukocyte Esterase Negative Urine Opiates Screen Ur Methadone, Qual Urine Barbiturates Ur Phencyclidine (PCP) U Amphetamin/Meth Scrn MDMA (Ecstasy) Screen U Benzodiazepines Scrn Ur Cocaine Metabolite U Marijuana (THC) Screen SARS-CoV-2 Ag (Rapid) 08/14/20 08/14/20 08/14/20 21:00 21:19 Unknown WBC RBC Hgb Hct MCV MCH MCHC RDW Std Deviation RDW Coeff of Yolie Plt Count MPV Immature Gran % (Auto) Neut % (Auto) Lymph % (Auto) [place] % (Auto) Eos % (Auto) Baso % (Auto) Neut # (Auto) Lymph # (Auto) [place] # (Auto) Eos # (Auto) Baso # (Auto) Immature Gran # (Auto) PT INR APTT PTT Ratio D-Dimer Sodium Potassium Chloride Carbon Dioxide Anion Gap BUN Creatinine Est Cr Clr Drug Dosing Est GFR ( Amer) Est GFR (Non-Af Amer) BUN/Creatinine Ratio Glucose Calcium Total Bilirubin AST ALT Alkaline Phosphatase Troponin I < 0.015 Total Protein Albumin Globulin Albumin/Globulin Ratio Lipase TSH Urine Color Urine Appearance Urine pH Ur Specific [place] Urine Protein Urine Glucose (UA) Urine Ketones Urine Blood Urine Nitrite Urine Bilirubin Urine Urobilinogen Ur Leukocyte Esterase Urine Opiates Screen Neg Ur Methadone, Qual Neg Urine Barbiturates Neg Ur Phencyclidine (PCP) Neg U Amphetamin/Meth Scrn Neg MDMA (Ecstasy) Screen Neg U Benzodiazepines Scrn Neg Ur Cocaine Metabolite Neg U Marijuana (THC) Screen Neg SARS-CoV-2 Ag (Rapid) Negative 08/15/20 08/15/20 08/15/20 02:06 02:06 02:06 WBC 6.53 RBC 3.70 L Hgb 11.8 L Hct 36.4 L MCV 98.4 MCH 31.9 MCHC 32.4 RDW Std Deviation 48.6 H RDW Coeff of Yolie 13.5 Plt Count 219 MPV 11.6 H Immature Gran % (Auto) Neut % (Auto) Lymph % (Auto) [place] % (Auto) Eos % (Auto) Baso % (Auto) Neut # (Auto) Lymph # (Auto) [place] # (Auto) Eos # (Auto) Baso # (Auto) Immature Gran # (Auto) PT INR APTT 66.3 H* PTT Ratio 2.4 D-Dimer Sodium Potassium Chloride Carbon Dioxide Anion Gap BUN Creatinine Est Cr Clr Drug Dosing Est GFR ( Amer) Est GFR (Non-Af Amer) BUN/Creatinine Ratio Glucose Calcium Total Bilirubin AST ALT Alkaline Phosphatase Troponin I < 0.015 Total Protein Albumin Globulin Albumin/Globulin Ratio Lipase TSH Urine Color Urine Appearance Urine pH Ur Specific [place] Urine Protein Urine Glucose (UA) Urine Ketones Urine Blood Urine Nitrite Urine Bilirubin Urine Urobilinogen Ur Leukocyte Esterase Urine Opiates Screen Ur Methadone, Qual Urine Barbiturates Ur Phencyclidine (PCP) U Amphetamin/Meth Scrn MDMA (Ecstasy) Screen U Benzodiazepines Scrn Ur Cocaine Metabolite U Marijuana (THC) Screen SARS-CoV-2 Ag (Rapid) 08/15/20 02:06 WBC RBC Hgb Hct MCV MCH MCHC RDW Std Deviation RDW Coeff of Yolie Plt Count MPV Immature Gran % (Auto) Neut % (Auto) Lymph % (Auto) [place] % (Auto) Eos % (Auto) Baso % (Auto) Neut # (Auto) Lymph # (Auto) [place] # (Auto) Eos # (Auto) Baso # (Auto) Immature Gran # (Auto) PT INR APTT PTT Ratio D-Dimer Sodium 141 Potassium 3.8 Chloride 112 H Carbon Dioxide 28 Anion Gap 1.0 L BUN 11 Creatinine 0.76 Est Cr Clr Drug Dosing 83.1 Est GFR ( Amer) 89.6 Est GFR (Non-Af Amer) 77.3 BUN/Creatinine Ratio 14.7 Glucose 100 H Calcium 8.1 L Total Bilirubin AST ALT Alkaline Phosphatase Troponin I Total Protein Albumin Globulin Albumin/Globulin Ratio Lipase TSH Urine Color Urine Appearance Urine pH Ur Specific [place] Urine Protein Urine Glucose (UA) Urine Ketones Urine Blood Urine Nitrite Urine Bilirubin Urine Urobilinogen Ur Leukocyte Esterase Urine Opiates Screen Ur Methadone, Qual Urine Barbiturates Ur Phencyclidine (PCP) U Amphetamin/Meth Scrn MDMA (Ecstasy) Screen U Benzodiazepines Scrn Ur Cocaine Metabolite U Marijuana (THC) Screen SARS-CoV-2 Ag (Rapid)
[2020-08-16] MEDS ORDERED: FUROSEMIDE 20 MG in SYRINGE 0 ML IV ONE (11:00)
[2020-08-16] MEDS ORDERED: POTASSIUM CHLORIDE CRTAB 20 MEQ TABCR PO ONE (11:00)
--- NOTE | 2020-08-16 12:19 | Communication Note ---
Date of Service: August 16, 2020 rapid afib RVR for unknown duration /Diagnosed this admission : Pt remains in afib now rate controlled appreciate input form cardiology pt will continue with Toprol XL 50 mg BID anticoagulation Eliquis 5 mg BID cardiology follow up and may need possible cardioversion after adequately anticoagulated /to prevent risk of procedure induced thromboembolism /CVA Acute CHF with Diastolic heart failure : due to rapid afib vol status improved after IV lasix will be discharged on Lasix 20 mg daily /K supplement 20 meq daily repeat BMP in a week/next physician visit -to assess renal function , electrolytes plan to discharge pt home today Hannah Casarez MD
--- NOTE | 2020-08-17 11:49 | Discharge Summary ---
Date of Service August 17, 2020 Admission HPI Per Admitting Provider Pt is 74 y/o F with PMH basal cell skin carcinoma presented to ER with complaint of shortness of breath x10 days. Shortness of breath worse with exertion. Also noticed intermittent "fluttering" of heart the past week. Patient reports chills for the past week without any fever. Reports fatigue x3 months. She reports negative outpatient rapid Covid testing 2 days ago. Has chronic nasal congestion. Reports 2-3 soft stools a day for the past week. Denies any loss of taste or smell. Denies cough. Denies chest pain. Admits to increased caffeine intake over the past several weeks, consuming 2 to 3 cups of coffee and 20 ounce bottle of Mountain Dew daily. Drinks 2 glasses of wine a day. Denies OTC or prescription medications. Saw PCP today and was referred to cardiology and referred to ER for further evaluation and treatment. PCP prescribed Eliquis and metoprolol succinate today however pt did not start taking yet. Outpatient echo report unavailable however echo report per cardiology note "preserved left and right ventricular systolic function, dilation of left atrium". Denies diaphoresis, N/V, MIGUEL, dizziness, syncope, vision changes, neck pain, sore throat, choking, otalgia, abdominal pain, extremity weakness, extremity edema, rashes, urinary symptoms. Principal Diagnosis Rapid irregular Heart Rate /Atrial Fibrillation with rapid ventricular rate Acute CHF with diastolic heart failure Discharge Exam Constitutional WD/WN, vitals as above Eyes PERRL, conjunctivae normal, anicteric sclerae ENMT external ear and nose normal, oropharynx normal Neck trachea midline, no thyromegaly Respiratory normal respiratory effort, lungs clear to auscultation Cardiovascular Rate/Rhythm: + tachycardic and + irregularly irregular Gastrointestinal (Abdomen) Percussion/Palpation: abdomen soft; abdomen nontender Musculoskeletal no cyanosis or clubbing, extremities motor strength 5/5 Skin no rashes, warm and dry Neurologic PERRL, EOMI, accommodation nl, no face palsy, no dysarthria Psychiatric A+Ox3, euthymic affect Discharge Data Allergies Allergy/AdvReac Type Severity Reaction Status Date / Time codeine AdvReac NAUSEA & Verified 08/14/20 16:37 VOMITING Consultations 08/14/20 15:59 ED Decision to Admit Stat 08/15/20 08:00 Consult Cardiology Routine Ordered Studies 08/14/20 18:07 CT angio chest PE protocol Stat Hospital Course (1) Atrial fibrillation with RVR: Presented with rapid afib RVR for unknown duration /new Diagnosed this admission : Was on IV Cardizem drip and IV heparin in ER. Pt remains in afib now rate controlled appreciate input form cardiology pt will continue with Toprol XL 50 mg BID anticoagulation Eliquis 5 mg BID cardiology follow up and may need possible cardioversion after adequately anticoagulated /to prevent risk of procedure induced thromboembolism /CVA Acute CHF with Diastolic heart failure : due to rapid afib vol status improved after IV lasix will be discharged on Lasix 20 mg daily /K supplement 20 meq daily repeat BMP in a week/next physician visit -to assess renal function , electrolytes Stable to be discharged home today Full code DVT prophylaxis : on Eliquis Disposition : will be discharged to home when medically stable plan of care d/w pt ,all questions answered Total Time Total Time Spent Total Time Spent (In Minutes): 35 minutes Total Time Includes: Examination of the Patient, Discharge Planning, Medication Reconciliation and Communication With Other Providers Discharge Plan Discharge Items Patient Disposition: Home - Self-Care Reason For Visit: AFIB, RVR Discharge Diagnosis: Rapid irregular Heart Rate /Atrial Fibrillation with rapid ventricular rate Acute CHF with diastolic heart failure Activity: Resume your previous activity Non-emergency contact: Primary Care Provider Call non-emergency contact if: you have any medication questions Follow-up/Referrals: Fabian Borjas MD [Physician] - 08/27/20 10:45 am Rayshawn Cervantes DO [Primary Care Provider] - 08/20/20 11:20 am (Date & Time 08/20/2020 11:20 AM Provider Rayshawn Cervantes DO Department General Internal Medicine [facility] ) Diet: Heart Healthy Kacey Attending Provider Instructions: Hospital follow up with Dr Cervantes 08/20/20 Lab work : Basic metabolic panel on 08/20/20 Cardiology follow up in [facility], 08/27/20 @10:45 am [employer] Provider Instructions: Call your Primary Care doctor if any of the following symptoms or problems start or get worse: * Shortness of breath or difficulty breathing * Wake up at night short of breath * Chest pain * Cough * Swelling of your hands, feet, or legs * More fatigued or tired with your normal activity * Palpitations - sudden fast heart beats WEIGHT * Weigh yourself every morning after using the bathroom. * Use the same scale. * Wear the same amount of clothing. * Write your weight down on a chart. * Call your Primary Care doctor if you gain more than 2-3 pounds in 1-2 days. MEDICATIONS * Use this discharge instruction sheet for medication instructions. * Take your medications at the time your doctor ordered. * Do not skip a dose of your medicines. * If you miss a dose of medicine, take it as soon as possible, but DO NOT DOUBLE A DOSE. * Read your medicine information when you get home. * Know all of the side effects of your medicine. If in doubt, ask your pharmacist * Call your Primary Care doctor's office if you have any side effects. * Be sure all of your doctors know what medicine and herbs you take (including cold, flu, and herbal medicine). Take the following with you to your follow-up doctor appointments: * Weight Chart * Medication List * List of questions Do not drink excessive alcohol, beer or wine. Pending Studies at Discharge: No Stand-Alone Forms: My [facility] ALKALINE WATER, Smoking Cessation Medications and DC Order Prescriptions: New metoprolol succinate 50 mg Tablet Extended Release 24 Hr 50 mg PO BID 30 Days Qty: 60 RF: 3 Eliquis 5 mg Tablet 5 mg PO BID 30 Days Qty: 60 RF: 3 furosemide [Lasix] 20 mg tablet 20 mg PO DAILY 30 Days Qty: 30 RF: 3 potassium chloride 20 mEq tablet extended release 20 meq PO DAILY Qty: 30 RF: 3 Discontinued metoprolol succinate 25 mg Tablet Extended Release 24 Hr 25 mg PO DAILY RF: 0 Discharge Orders: Discharge Order (Routine); Ordered 08/16/20 Ordered By: Hannah Casarez Admission Data Admit Date/Time: 08/14/20 16:33 Attending Provider: Hannah Casarez Admit Provider: Kirsten Whyte Primary Care Provider: Rayshawn Cervantes Other Providers: Kirsten Whyte ; Fabian Borjas Other Interventions: Discharge Summary Assessment (RN) Last Done: 08/16/20 13:55
== END 2020-08-16 14:41 | disposition home or self-care (01) | DRG 308 ==
LOC: ED 15:24 → SUATTDRO 16:33 → 2S 16:33